=== PATIENT | male | born 1960 | race Caucasian/White ===

== ENCOUNTER → 2017-04-25 | Outpatient (CLI) | payer BC ==
--- NOTE | 2017-04-25 15:42 | DIAGNOSTIC IMAGING REPORT ---
CT SCAN OF THE PARANASAL SINUSES CLINICAL HISTORY: Acute sinusitis. COMPARISON STUDY: No priors. TECHNIQUE: High-resolution CT scan of the paranasal sinuses is performed. Images are reviewed in the axial, sagittal, and coronal planes. IV contrast was not administered for this examination. Examination is performed using the fusion protocol. A dose lowering technique was utilized adhering to the principles of ALARA. CT DOSE: 762.52 mGycm FINDINGS: Maxillary antra: There is mild mucosal thickening in the right maxillary antrum. Trace mucosal thickening is seen in the left maxillary antrum. Tiny air-fluid levels are seen within both maxillary antra. Anterior ethmoid sinuses: Clear. Posterior ethmoid sinuses: Clear. Sphenoid sinuses: There is trace fluid in the right sphenoid sinus as well as a 2 cm retention cyst. The left sphenoid sinus is clear. Frontal sinuses: Trace mucosal thickening is seen bilaterally, left greater than right. Ostiomeatal complexes: Patent bilaterally, with narrowing on the right secondary to mucosal thickening. Frontoethmoidal and sphenoethmoidal recesses: Patent bilaterally. Carotid arteries: The carotid arteries are protuberant but covered and without septal attachments. Ethmoid roofs: The ethmoid roofs are symmetric. Nasal turbinates: Normal in appearance. Nasal septum: There is mild leftward deviation of the bony nasal septum. Optic nerves: Covered. Orbits: The bony orbits are intact. Orbital contents are normal in appearance. Calvarium: The imaged calvarium is normal in appearance Mastoid air cells: There is a trace right mastoid effusion. The left mastoid air cells are clear. Brain parenchyma: Partially visualized brain parenchyma is within normal limits. IMPRESSION: Paranasal sinus disease as above. Findings suggest acute sinusitis involving the maxillary and right sphenoid sinuses. Electronically signed by: Cosmo Interiano M.D. 04/25/2017 3:40 PM Dictated Date/Time: 04/25/2017 3:37 PM
== END | disposition home or self-care (01) ==
LOC: C.CTS 14:32
PROVIDERS: ATTEND Physician Assistant
DX: R09.81 Nasal congestion (principal); J01.90 Acute sinusitis, unspecified